=== PATIENT | female | born 1945 | race Caucasian/White ===

== ENCOUNTER 2023-09-16 11:02 | Emergency (ER) | payer OTHER ==
[~2023-09-16] VITALS: Ht 157.5 cm; Wt 81.7 kg
[~2023-09-16 11:02] MED LIST: 24 HOUR ALLER15.8 ML NS; ALBUTEROL2.5 MG/3 M INH; BENICAR HCT 401 EAC1 PO; CALCIUM MAGNES1 EAC1 PO; FLAXSEED1000 MG PO; GLUCOSAMINE &1 EAC1 PO; GRALISE600 MG PO; IBUPROFEN200 MG PO; MULTI VITAMIN1 EACH PO; OXYCODON-ACETA1 EAC2 PO; PREMARIN0.625 MG PO; PRILOSEC OTC20 MG PO; PROBIOTIC1 EAC2 PO; QVAR7.3 G1 INH; SINGULAIR10 MG PO
--- OUTSIDE RECORDS SUMMARY | 2023-09-16 11:04 | XMS ---
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 Ash has no Care Guidelines for this patient. Korin VISIT COUNT (12 MO.) 1 BONI Khan TOTAL 1 NOTE: Visits indicate total known visits. ED/C VISIT TRACKING (12 MO.) 09/16/2023 11:03 BONI Tony [place] TYPE: Emergency COMPLAINT: - HIGH B/P, FACIAL PAIN INPATIENT VISIT TRACKING (12 MO.) No inpatient visits to display in this time frame [email or web address]
[2023-09-16 12:01] VITALS: BP 126/75
== END 2023-09-16 12:02 | disposition home or self-care (01) ==
LOC: ED 11:02
DX: G50.0 Trigeminal neuralgia (principal); I10 Essential (primary) hypertension; J45.909 Unspecified asthma, uncomplicated; Z87.891 Personal history of nicotine dependence; Z79.899 Other long term (current) drug therapy
CPT/HCPCS: 99283